=== PATIENT | female | born 1975 | race Caucasian/White ===

== ENCOUNTER 2018-02-23 16:40 | Emergency (ER) | payer MEDICARE ==
[~2018-02-23] VITALS: Ht 160 cm; Wt 75.0 kg
[~2018-02-23 16:40] MED LIST: ALPR1 PO; BUPR150XL PO; LAMI25TA3 PO; LORTA5 PO
[2018-02-23 17:03] VITALS: BP 133/67; PULSE 72; RESP 20; TEMP 98.2; O2SAT 100
[2018-02-23 17:14] VITALS: BP 133/67; PULSE 57; RESP 16; TEMP 98.4; O2SAT 100
[2018-02-23] MEDS ORDERED: SERO200T PO (17:31)
[2018-02-23] MEDS ORDERED: LISD50 PO (17:31)
[2018-02-23] MEDS ORDERED: SUBO8MIS SL (17:31)
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
--- NOTE | 2018-02-23 18:27 | PD ---
Data Data Last Documented VS Vital Signs Date Time Temp Pulse Resp B/P (MAP) Pulse Ox O2 Delivery O2 Flow Rate FiO2 02/23/18 18:15 Room Air 02/23/18 17:14 98.4 57 16 133/67 (89) 100 Orders Orders Psych Screen (02/23/18 18:57) Ed Discharge Order (02/23/18 21:14) Hugh Woo MD Feb 23, 2018 18:27
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
== END 2018-02-23 21:28 | disposition home or self-care (01) ==
LOC: NEPC 16:40
DX: T76.21XA Adult sexual abuse, suspected, initial encounter (principal); S40.021A Contusion of right upper arm, initial encounter; F31.9 Bipolar disorder, unspecified; X58.XXXA Exposure to other specified factors, initial encounter
CPT/HCPCS: 99281